=== PATIENT | female | born 1950 | race Two or more races ===

== ENCOUNTER 2022-12-12 07:27 | Outpatient (CLI) | payer OTHER | END 2022-12-12 07:30 | disposition home or self-care (01) | LOC: NUCLEAR 07:27 | PROVIDERS: ATTEND Internal Medicine | DX: I25.119 Atherosclerotic heart disease of native coronary artery with unspecified angina pectoris (principal); R07.9 Chest pain, unspecified | CPT/HCPCS: 78452; 93017; A9500; J0153 ==

== ENCOUNTER 2023-11-19 13:16 | Outpatient (CLI) | payer OTHER | END 2023-11-19 13:22 | disposition home or self-care (01) | LOC: NUCLEAR 13:16 | PROVIDERS: ATTEND Internal Medicine | DX: Z13.820 Encounter for screening for osteoporosis (principal); M81.0 Age-related osteoporosis without current pathological fracture ==